=== PATIENT | female | born 1995 ===

== ENCOUNTER 2018-03-13 15:19 | Emergency (ER) | payer BC ==
[~2018-03-13] VITALS: Ht 167.6 cm; Wt 57.7 kg
[2018-03-13 15:25] VITALS: TEMP 36.8; Ht 167.6 cm; Wt 57.7 kg
[2018-03-13] MEDS ORDERED: LIDOCAINE 1% BUFFERED INJ 5 ML VIAL INFIL ONE (16:00)
[2018-03-13 17:13] VITALS: BP 116/67; PULSE 87; O2SAT 100
--- NOTE | 2018-03-13 23:32 | EMERGENCY ROOM VISIT NOTE ---
History First contact with patient: 15:35 Chief Complaint: LACERATION/CUT (SUT/DERMABOND) Stated Complaint: CUT FINGER - LEFT HAND Nursing Triage Summary: patient states "I cut my finger with an exacto blade cutting paper for a project." Finger bandaged, bleeding controled at time of triage History of Present Illness The patient is a 22 year old female who presents to the Emergency Room with complaints of a laceration to her left index finger. The patient accidentally cut her finger with an [employer] knife while working on a school project today. The patient denies any significant bleeding. She denies any paresthesias or numbness to the fingertip. She rates her pain a 2 out of 10. The patient is right-hand dominant. She believes that her tetanus immunization is up-to-date. Review of Systems 6 system review was performed and was negative except for pertinent positives and negatives as indicated in history of present illness Past Medical/Surgical History Medical Problems: (1) Disp Fx Of Fifth Metatarsal Bone, Right Foot, Init Family History Unremarkable Social History Smoking Status: Never Smoker Alcohol Use: occasionally Marital Status: single Occupation Status: [employer] student Physical Exam Vital Signs Date Time Temp Pulse Resp B/P (MAP) Pulse Ox O2 Delivery O2 Flow Rate FiO2 03/13/18 17:13 87 12 116/67 100 03/13/18 15:25 36.8 81 20 109/73 98 Room Air Physical Exam CONSTITUTIONAL: Healthy and well nourished. Alert and oriented X 3 with positive affect. HEENT: Normocephalic, atraumatic. Pupils equal, round and reactive. MUSCULOSKELETAL: Examination of the left index finger shows a 2 cm longitudinal flap laceration adjacent to the edge of the nail plate. It does not cross the nail plate. No active bleeding noted. Capillary refill is less than 2 seconds. INTEGUMENTARY: No rash or other significant dermatologic conditions noted. NEUROLOGIC: Left index fingertip is sensory intact. Medical Decision & Procedures Procedure Laceration repair was performed by our physician community assistant student under my direct supervision. Using buffered 1% lidocaine without epinephrine, good digital block anesthesia was administered. The finger was then painted with iodine and allowed to dry. The wound was then thoroughly irrigated. The wound was then approximated using 5-0 nylon simple interrupted sutures. Bacitracin dressing was applied. ED Course Patient history and physical exam were performed. Nurse's notes were reviewed. Laceration repair was performed under digital block anesthesia. The patient was provided additional verbal and written wound care instructions. Ice and elevation as needed for swelling. Ibuprofen or Tylenol if needed for pain. Suture removal in 10-14 days, or seek reevaluation sooner for any signs of infection. The patient was also instructed to verify with her PCP that her tetanus immunization is up-to-date. The patient was happy with plan of care, voiced understanding of all discharge instructions, and denied any pain at the time of discharge. Medical Decision Medication Reconcilliation Current Medication List: was personally reviewed by in Blood Pressure Screening Patient's blood pressure: Normal blood pressure Impression Primary Impression: Laceration of left index finger Departure Information Dispostion Home / Self-Care Forms HOME CARE DOCUMENTATION FORM, IMPORTANT VISIT INFORMATION Patient Instructions [facility] Additional Instructions Keep wound clean and dry. Do not allow any crusting or dried blood to accumulate on sutures. If this occurs, use a 1:1 solution of hydrogen peroxide/ water on a Q-tip to clean the wound. Use an antibiotic ointment for 3-4 days, then let wound dry. Suture removal in 10-14 days. Return sooner for any signs of infection (increasing redness, swelling, drainage). Ice and elevate for swelling and pain. Ibuprofen 600 mg and Tylenol 1000 mg every 6 hrs for pain. Problem Qualifiers Primary Impression: Laceration of left index finger Encounter type: initial encounter Damage to nail status: without damage Foreign body presence: without foreign body Qualified Codes: S61.211A - Laceration without foreign body of left index finger without damage to nail, initial encounter
== END 2018-03-13 17:27 | disposition home or self-care (01) ==
LOC: C.EDB 15:21 → C.EDD 17:27
DX: S61.211A Laceration without foreign body of left index finger without damage to nail, initial encounter (principal); W45.8XXA Other foreign body or object entering through skin, initial encounter; Y93.89 Activity, other specified